=== PATIENT | female | born 1990 | race African-American/Black ===

== ENCOUNTER 2018-02-04 14:07 | Inpatient (IN) | payer MEDICAID, SELFPAY ==
[~2018-02-04] VITALS: Ht 170.2 cm; Wt 82.4 kg
[~2018-02-04 14:07] MED LIST: PROZAC PO
[2018-02-04 14:24] LABS: GLUCOSE,POINT OF CARE 116 MG/DL (70-110)
[2018-02-04 15:53] LABS: BASOPHILS % (AUTO) 0.3 % (0.0-2.0); EOSINOPHILS % (AUTO) 0.2 % (1.0-6.0); HEMATOCRIT 43.5 % (36-46); HEMOGLOBIN 14.3 g/dL (12.0-16.0); LYMPHOCYTES # (AUTO) 0.6 K/uL (1.0-4.8); LYMPHOCYTES % (AUTO) 6.2 % (22.0-44.0); MEAN CORPUSCULAR HEMOGLOBIN 29.3 pg (26.0-34.0); MEAN CORPUSCULAR HGB CONC 32.9 G/dL (31.0-37.0); MEAN CORPUSCULAR VOLUME 89 fL (80-100); MONOCYTES # (AUTO) 1.1 K/uL (0.1-1.0); MONOCYTES % (AUTO) 11.5 % (2.0-9.0); NEUTROPHILS % (AUTO) 81.8 % (40.0-70.0); PLATELET COUNT (AUTO) 208 K/uL (150-450); RED CELL DISTRIBUTION WIDTH 16.3 % (11.5-14.5)
[2018-02-04 16:06] LABS: ANION GAP 11 mmol/L (8-16); CALCIUM, TOTAL 8.4 mg/dL (8.8-10.5); CARBON DIOXIDE 25 mmol/L (22-29); CHLORIDE 99 mmol/L (98-107); CREATININE 0.77 mg/dL (0.60-1.30); GLOMERULAR FILTR. RATE CALC > 60 mL/min (>60); GLUCOSE,RANDOM 105 mg/dL (70-110); POTASSIUM 3.5 mmol/L (3.5-5.1); SODIUM SERUM 135 mmol/L (136-145); UREA NITROGEN, BLOOD 11 mg/dL (7-18)
[2018-02-04 16:11] LABS: ALANINE AMINOTRANSFERASE 161 U/L (12-78); ALBUMIN 3.9 g/dL (3.4-5.0); ALKALINE PHOSPHATASE 101 U/L (46-116); ASPARTATE AMINOTRANSFERASE 122 U/L (15-37); BILIRUBIN,TOTAL 1.4 mg/dL (0.1-1.0); TOTAL PROTEIN, SERUM 7.6 g/dL (6.4-8.2)
[2018-02-04 16:14] LABS: ACETAMINOPHEN 165 mcg/mL (10-30)
[2018-02-04 16:15] LABS: SALICYLATE < 2.8 mg/dL (2.8-20.0)
[2018-02-04] MEDS ORDERED: ONDANSETRON HCL 4 MG/2 ML VIAL IVP ONE (16:30)
[2018-02-04] MEDS ORDERED: WATER IV ONE ×3 (16:30→21:30)
[2018-02-04] MEDS ORDERED: ACETYLCYSTEINE IV ONE ×3 (16:30→21:30)
[2018-02-04] MEDS ORDERED: DEXTROSE 5% IV ONE ×3 (16:30→21:30)
[2018-02-04 16:40] LABS: INR 1.1 (0.9-1.1); PROTHROMBIN TIME 11.9 SEC (9.4-11.6)
[2018-02-04] MEDS ORDERED: ONDANSETRON HCL 4 MG/2 ML VIAL IVP PRN (16:45)
[2018-02-04 17:46] VITALS: BP 128/78
[2018-02-04] MEDS ORDERED: BISACODYL 10 MG RECTAL RECTAL SUPPOSITORY PR PRN (19:45)
[2018-02-04] MEDS ORDERED: ALBUTEROL SULFATE 2.5 MG/0.5 ML NEB SOLUTION NEB PRN (19:45)
[2018-02-04] MEDS ORDERED: MAGNESIUM HYDROXIDE SUSPENSION 30 ML UDCUP PO PRN (19:45)
[2018-02-04] MEDS ORDERED: IPRATROPIUM BROMIDE 0.5 MG/2.5 ML NEB SOLUTION NEB PRN (19:45)
[2018-02-04 20:00] VITALS: BP 151/99
[2018-02-04] MEDS: ONDANSETRON HCL 4 MG/2 ML VIAL IVP PRN (20:25)
[2018-02-04] MEDS: DOCUSATE SODIUM 100 MG CAPSULE PO SCH (20:28)
[2018-02-04] MEDS: HEPARIN SODIUM,PORCINE 5,000 UNITS/ML VIAL SQ SCH (23:15)
[2018-02-05 00:15] VITALS: BP 130/72
[2018-02-05] MEDS: ONDANSETRON HCL 4 MG/2 ML VIAL IVP PRN ×2 (02:20→12:31)
[2018-02-05 05:45] VITALS: BP 143/85
[2018-02-05] MEDS: HEPARIN SODIUM,PORCINE 5,000 UNITS/ML VIAL SQ SCH (08:00)
[2018-02-05] MEDS: DOCUSATE SODIUM 100 MG CAPSULE PO SCH ×2 (09:00→21:00)
[2018-02-05] MEDS: PANTOPRAZOLE SODIUM 40 MG/VIAL IVP SCH (09:00)
[2018-02-05 12:15] VITALS: BP 128/67
[2018-02-05] MEDS: ESCITALOPRAM OXALATE 10 MG TABLET PO SCH (12:21)
[2018-02-05 13:34] LABS: BASOPHILS % (AUTO) 0.3 % (0.0-2.0); EOSINOPHILS % (AUTO) 0.9 % (1.0-6.0); HEMATOCRIT 42.8 % (36-46); HEMOGLOBIN 14.2 g/dL (12.0-16.0); LYMPHOCYTES # (AUTO) 1.1 K/uL (1.0-4.8); LYMPHOCYTES % (AUTO) 8.4 % (22.0-44.0); MEAN CORPUSCULAR HEMOGLOBIN 29.1 pg (26.0-34.0); MEAN CORPUSCULAR HGB CONC 33.2 G/dL (31.0-37.0); MEAN CORPUSCULAR VOLUME 88 fL (80-100); MONOCYTES # (AUTO) 0.5 K/uL (0.1-1.0); MONOCYTES % (AUTO) 3.5 % (2.0-9.0); NEUTROPHILS # (AUTO) 11.9 K/uL (1.8-7.7); NEUTROPHILS % (AUTO) 86.9 % (40.0-70.0); PLATELET COUNT (AUTO) 266 K/uL (150-450); RED BLOOD CELL COUNT(AUTO) 4.89 MIL/uL (4.00-5.20); RED CELL DISTRIBUTION WIDTH 16.1 % (11.5-14.5)
[2018-02-05 13:43] LABS: INR 1.9 (0.9-1.1); PROTHROMBIN TIME 19.1 SEC (9.4-11.6)
[2018-02-05 13:49] LABS: ACETAMINOPHEN 5 mcg/mL (10-30); ALANINE AMINOTRANSFERASE 983 U/L (12-78); ALBUMIN 3.3 g/dL (3.4-5.0); ALKALINE PHOSPHATASE 100 U/L (46-116); ANION GAP 7 mmol/L (8-16); ASPARTATE AMINOTRANSFERASE 852 U/L (15-37); CALCIUM, TOTAL 8.1 mg/dL (8.8-10.5); CARBON DIOXIDE 29 mmol/L (22-29); CHLORIDE 96 mmol/L (98-107); CREATININE 0.74 mg/dL (0.60-1.30); GLOMERULAR FILTR. RATE CALC > 60 mL/min (>60); GLUCOSE,RANDOM 99 mg/dL (70-110); SODIUM SERUM 132 mmol/L (136-145); TOTAL PROTEIN, SERUM 6.6 g/dL (6.4-8.2); UREA NITROGEN, BLOOD 12 mg/dL (7-18)
[2018-02-05] MEDS ORDERED: POTASSIUM CHLORIDE 20 MEQ ER TABLET PO ONE (14:15)
[2018-02-05 16:26] VITALS: BP 124/70
[2018-02-05] MEDS ORDERED: WATER IV ONE (17:00)
[2018-02-05] MEDS ORDERED: ACETYLCYSTEINE IV ONE (17:00)
[2018-02-05] MEDS ORDERED: DEXTROSE 5% IV ONE (17:00)
[2018-02-06 04:15] VITALS: BP 130/68
[2018-02-06 06:27] LABS: BASOPHILS % (AUTO) 0.2 % (0.0-2.0); EOSINOPHILS % (AUTO) 0.2 % (1.0-6.0); HEMOGLOBIN 14.1 g/dL (12.0-16.0); LYMPHOCYTES # (AUTO) 0.6 K/uL (1.0-4.8); LYMPHOCYTES % (AUTO) 5.6 % (22.0-44.0); MEAN CORPUSCULAR HEMOGLOBIN 29.1 pg (26.0-34.0); MEAN CORPUSCULAR HGB CONC 33.6 G/dL (31.0-37.0); MEAN CORPUSCULAR VOLUME 87 fL (80-100); MONOCYTES # (AUTO) 0.6 K/uL (0.1-1.0); MONOCYTES % (AUTO) 5.1 % (2.0-9.0); NEUTROPHILS # (AUTO) 9.6 K/uL (1.8-7.7); PLATELET COUNT (AUTO) 228 K/uL (150-450); RED BLOOD CELL COUNT(AUTO) 4.84 MIL/uL (4.00-5.20); RED CELL DISTRIBUTION WIDTH 15.9 % (11.5-14.5)
[2018-02-06 06:29] LABS: NEUTROPHILS % (AUTO) 88.9 % (40.0-70.0)
[2018-02-06 06:38] LABS: INR 2.1 (0.9-1.1); PROTHROMBIN TIME 21.7 SEC (9.4-11.6)
[2018-02-06 07:03] LABS: ALBUMIN 3.2 g/dL (3.4-5.0); ALKALINE PHOSPHATASE 117 U/L (46-116); ANION GAP 10 mmol/L (8-16); BILIRUBIN,TOTAL 2.9 mg/dL (0.1-1.0); CARBON DIOXIDE 26 mmol/L (22-29); CHLORIDE 98 mmol/L (98-107); CREATININE 0.84 mg/dL (0.60-1.30); GLOMERULAR FILTR. RATE CALC > 60 mL/min (>60); GLUCOSE,RANDOM 87 mg/dL (70-110); POTASSIUM 3.2 mmol/L (3.5-5.1); SODIUM SERUM 134 mmol/L (136-145); TOTAL PROTEIN, SERUM 6.6 g/dL (6.4-8.2); UREA NITROGEN, BLOOD 10 mg/dL (7-18)
[2018-02-06 07:33] LABS: ALANINE AMINOTRANSFERASE 10874 U/L (12-78)
[2018-02-06 07:36] LABS: ASPARTATE AMINOTRANSFERASE 10957 U/L (15-37)
[2018-02-06] MEDS: DOCUSATE SODIUM 100 MG CAPSULE PO SCH ×2 (08:33→20:00)
[2018-02-06] MEDS: ESCITALOPRAM OXALATE 10 MG TABLET PO SCH (08:33)
[2018-02-06] MEDS: PANTOPRAZOLE SODIUM 40 MG/VIAL IVP SCH (08:33)
[2018-02-06 08:34] VITALS: BP 120/68
[2018-02-06 09:02] LABS: BILIRUBIN,DIRECT 1.2 mg/dL (0.00-0.20); BILIRUBIN,TOTAL 2.5 mg/dL (0.1-1.0)
[2018-02-06] MEDS ORDERED: POTASSIUM CHL 10 MEQ/WATER 50 ML IV PRN (09:30)
[2018-02-06] MEDS: POTASSIUM CHLORIDE 20 MEQ ER TABLET PO PRN ×2 (09:31→15:47)
[2018-02-06] MEDS ORDERED: DEXTROSE 5% IV ONE (14:15)
[2018-02-06] MEDS ORDERED: WATER IV ONE (14:15)
[2018-02-06] MEDS ORDERED: ACETYLCYSTEINE IV ONE (14:15)
[2018-02-06] MEDS: ONDANSETRON HCL 4 MG/2 ML VIAL IVP PRN (15:20)
[2018-02-06 15:42] VITALS: BP 116/65
[2018-02-06] MEDS ORDERED: PHYTONADIONE 10 MG/1 ML AMP SQ ONE ×2 (16:45→19:00)
[2018-02-06 18:22] LABS: HEMATOCRIT 41.9 % (36-46); HEMOGLOBIN 13.9 g/dL (12.0-16.0); MEAN CORPUSCULAR HEMOGLOBIN 29.3 pg (26.0-34.0); MEAN CORPUSCULAR HGB CONC 33.3 G/dL (31.0-37.0); MEAN CORPUSCULAR VOLUME 88 fL (80-100); PLATELET COUNT (AUTO) 218 K/uL (150-450); RED BLOOD CELL COUNT(AUTO) 4.75 MIL/uL (4.00-5.20); RED CELL DISTRIBUTION WIDTH 15.7 % (11.5-14.5)
[2018-02-06 18:30] LABS: ANION GAP 6 mmol/L (8-16); CARBON DIOXIDE 29 mmol/L (22-29); CHLORIDE 100 mmol/L (98-107); CREATININE 0.77 mg/dL (0.60-1.30); GLOMERULAR FILTR. RATE CALC > 60 mL/min (>60); GLUCOSE,RANDOM 110 mg/dL (70-110); POTASSIUM 3.8 mmol/L (3.5-5.1); SODIUM SERUM 135 mmol/L (136-145); UREA NITROGEN, BLOOD 6 mg/dL (7-18)
[2018-02-06 18:44] LABS: ALBUMIN 3.1 g/dL (3.4-5.0); ALKALINE PHOSPHATASE 121 U/L (46-116); BILIRUBIN,TOTAL 2.2 mg/dL (0.1-1.0); TOTAL PROTEIN, SERUM 6.5 g/dL (6.4-8.2)
[2018-02-06 18:55] LABS: ASPARTATE AMINOTRANSFERASE 7982 U/L (15-37)
[2018-02-06 19:05] LABS: ALANINE AMINOTRANSFERASE 13245 U/L (12-78)
[2018-02-06 19:19] LABS: BAND NEUTROPHILS % (MANUAL) 2 % (0-5); EOSINOPHILS % (MANUAL) 2 % (1-6); LYMPHOCYTES % (MANUAL) 16 % (22-44); MONOCYTES % (MANUAL) 1 % (2-9); SEGMENTED NEUTROPHILS % 79 % (40-70)
[2018-02-06 20:02] VITALS: BP 125/66
[2018-02-06 20:58] LABS: ABG A-A DIFF O2 12.5 mmHg (10-20.0); ABG BASE EXCESS 3.1 mmol/L (-2.0-3.0); ABG CARBOXYHEMOGLOBIN 0.6 % (0.0-3.0); ABG HCO3 27.4 mmol/L (22.0-26.0); ABG METHEMOGLOBIN 0.2 % (0.0-1.5); ABG OXYGEN CONTENT 18.7 mL/dL (15.0-23.0); ABG OXYGEN SATURATION 97.4 % (95.0-98.0); ABG OXYHEMOGLOBIN 96.6 % (94.0-100.0); ABG PCO2 36 mmHg (35-45); ABG PH 7.485 (7.350-7.450); ABG TOTAL HEMOGLOBIN 13.7 G/dL (12.0-18.0); PO2, ARTERIAL BG 94.1 mmHg (80.0-100.0); SOURCE, BLOOD GAS ARTERIAL; TEMPERATURE, FAHRENHEIT, BG 98.6 FAHREN (96.0-98.6)
[2018-02-06 20:59] LABS: O2 DEVICE,BLOOD GAS ROOM AIR (ROOM AIR); SITE, BLOOD GAS RT RADIAL
[2018-02-07 05:09] VITALS: BP 123/67
[2018-02-07 07:51] VITALS: BP 119/67
[2018-02-07] MEDS: PANTOPRAZOLE SODIUM 40 MG/VIAL IVP SCH (08:42)
[2018-02-07] MEDS: DOCUSATE SODIUM 100 MG CAPSULE PO SCH ×2 (08:42→19:59)
[2018-02-07] MEDS: ESCITALOPRAM OXALATE 10 MG TABLET PO SCH (08:42)
[2018-02-07] MEDS: PHYTONADIONE 10 MG/1 ML AMP SQ SCH (08:43)
[2018-02-07 09:01] LABS: INR 1.5 (0.9-1.1); PROTHROMBIN TIME 15.3 SEC (9.4-11.6)
[2018-02-07 11:50] LABS: ALKALINE PHOSPHATASE 109 U/L (46-116); ANION GAP 7 mmol/L (8-16); BILIRUBIN,TOTAL 1.7 mg/dL (0.1-1.0); CALCIUM, TOTAL 8.1 mg/dL (8.8-10.5); CARBON DIOXIDE 29 mmol/L (22-29); CHLORIDE 102 mmol/L (98-107); CREATININE 0.77 mg/dL (0.60-1.30); GLOMERULAR FILTR. RATE CALC > 60 mL/min (>60); GLUCOSE,RANDOM 97 mg/dL (70-110); POTASSIUM 3.5 mmol/L (3.5-5.1); SODIUM SERUM 138 mmol/L (136-145); TOTAL PROTEIN, SERUM 6.2 g/dL (6.4-8.2); UREA NITROGEN, BLOOD 6 mg/dL (7-18)
[2018-02-07 12:08] LABS: ASPARTATE AMINOTRANSFERASE 4764 U/L (15-37)
[2018-02-07 12:20] LABS: ALANINE AMINOTRANSFERASE 13358 U/L (12-78)
[2018-02-07] MEDS ORDERED: ACETYLCYSTEINE IV ONE ×2 (15:45→20:30)
[2018-02-07] MEDS ORDERED: WATER IV ONE ×2 (15:45→20:30)
[2018-02-07] MEDS ORDERED: DEXTROSE 5% IV ONE ×2 (15:45→20:30)
[2018-02-07 15:49] VITALS: BP 115/74
[2018-02-07 19:39] VITALS: BP 101/56
[2018-02-07 23:29] VITALS: BP 119/65
[2018-02-08 04:37] VITALS: BP 118/68
[2018-02-08 07:16] LABS: INR 1.1 (0.9-1.1); PROTHROMBIN TIME 11.5 SEC (9.4-11.6)
[2018-02-08 07:28] VITALS: BP 125/63
[2018-02-08 07:31] LABS: ALBUMIN 2.9 g/dL (3.4-5.0); ALKALINE PHOSPHATASE 105 U/L (46-116); ANION GAP 7 mmol/L (8-16); ASPARTATE AMINOTRANSFERASE 876 U/L (15-37); BILIRUBIN,TOTAL 1.4 mg/dL (0.1-1.0); CARBON DIOXIDE 28 mmol/L (22-29); CHLORIDE 101 mmol/L (98-107); CREATININE 0.82 mg/dL (0.60-1.30); GLOMERULAR FILTR. RATE CALC > 60 mL/min (>60); GLUCOSE,RANDOM 110 mg/dL (70-110); POTASSIUM 3.4 mmol/L (3.5-5.1); SODIUM SERUM 136 mmol/L (136-145); TOTAL PROTEIN, SERUM 6.4 g/dL (6.4-8.2); UREA NITROGEN, BLOOD 4 mg/dL (7-18)
[2018-02-08 08:05] LABS: ALANINE AMINOTRANSFERASE 6327 U/L (12-78)
[2018-02-08] MEDS: DOCUSATE SODIUM 100 MG CAPSULE PO SCH ×2 (08:45→20:48)
[2018-02-08] MEDS: PHYTONADIONE 10 MG/1 ML AMP SQ SCH (08:45)
[2018-02-08] MEDS: PANTOPRAZOLE SODIUM 40 MG/VIAL IVP SCH (08:45)
[2018-02-08] MEDS: POTASSIUM CHLORIDE 20 MEQ ER TABLET PO PRN (08:57)
[2018-02-08 11:35] VITALS: BP 127/63
[2018-02-08 15:41] VITALS: BP 144/67
[2018-02-08 19:48] VITALS: BP 109/63
[2018-02-08 23:38] VITALS: BP 114/67
[2018-02-09 04:37] VITALS: BP 136/62
[2018-02-09 06:58] LABS: ALANINE AMINOTRANSFERASE 3815 U/L (12-78); ALBUMIN 3.1 g/dL (3.4-5.0); ALKALINE PHOSPHATASE 100 U/L (46-116); ANION GAP 6 mmol/L (8-16); ASPARTATE AMINOTRANSFERASE 327 U/L (15-37); BILIRUBIN,TOTAL 1.2 mg/dL (0.1-1.0); CALCIUM, TOTAL 8.3 mg/dL (8.8-10.5); CARBON DIOXIDE 28 mmol/L (22-29); CHLORIDE 102 mmol/L (98-107); CREATININE 0.75 mg/dL (0.60-1.30); GLOMERULAR FILTR. RATE CALC > 60 mL/min (>60); GLUCOSE,RANDOM 87 mg/dL (70-110); SODIUM SERUM 136 mmol/L (136-145); TOTAL PROTEIN, SERUM 6.7 g/dL (6.4-8.2); UREA NITROGEN, BLOOD 8 mg/dL (7-18)
[2018-02-09 08:02] VITALS: BP 109/58
[2018-02-09] MEDS: DOCUSATE SODIUM 100 MG CAPSULE PO SCH (08:38)
[2018-02-09 11:39] VITALS: BP 119/70
== END 2018-02-09 13:50 | disposition home or self-care (01) | DRG 817 ==
LOC: EMS 14:07 → 6N 16:33
PROVIDERS: ADMIT Hospitalist; ATTEND Hospitalist
DX: T39.1X2A Poisoning by 4-Aminophenol derivatives, intentional self-harm, initial encounter (principal); K72.00 Acute and subacute hepatic failure without coma; D68.9 Coagulation defect, unspecified; R45.851 Suicidal ideations; F33.2 Major depressive disorder, recurrent severe without psychotic features; R74.0 Nonspecific elevation of levels of transaminase and lactic acid dehydrogenase [LDH]; E87.6 Hypokalemia; Y92.89 Other specified places as the place of occurrence of the external cause; Z91.5 Personal history of self-harm
CPT/HCPCS: 76700; 82247; 82248; 82805; 84132; 84450; 84460; 85007; 93005; 96365; 96375; C9113; G0378; G0480; G0481; J0132; J1644; J2405; J3430; J7060

== ENCOUNTER 2020-12-23 22:52 | Emergency (ER) | payer MEDICAID ==
[~2020-12-23] VITALS: Ht 167.6 cm; Wt 75.0 kg
[2020-12-23 23:07] VITALS: BP 148/95
[2020-12-24 00:52] LABS: COVID AG,FIA SOURCE NASOPHARYNGEAL
[2020-12-24 00:53] LABS: BASOPHILS % (AUTO) 0.8 % (0.0-2.0); EOSINOPHILS % (AUTO) 2.2 % (1.0-6.0); HEMATOCRIT 40.8 % (36-46); HEMOGLOBIN 13.6 g/dL (12.0-16.0); LYMPHOCYTES # (AUTO) 1.9 K/uL (1.0-4.8); LYMPHOCYTES % (AUTO) 20.1 % (22.0-44.0); MEAN CORPUSCULAR HEMOGLOBIN 31.9 pg (26.0-34.0); MEAN CORPUSCULAR HGB CONC 33.3 G/dL (31.0-37.0); MEAN CORPUSCULAR VOLUME 96 fL (80-100); MONOCYTES # (AUTO) 0.7 K/uL (0.1-1.0); MONOCYTES % (AUTO) 7.2 % (2.0-9.0); NEUTROPHILS # (AUTO) 6.6 K/uL (1.8-7.7); NEUTROPHILS % (AUTO) 69.7 % (40.0-70.0); PLATELET COUNT (AUTO) 268 K/uL (150-450); RED BLOOD CELL COUNT(AUTO) 4.27 MIL/uL (4.00-5.20); RED CELL DISTRIBUTION WIDTH 13.2 % (11.5-14.5)
[2020-12-24 01:11] LABS: ANION GAP 8 mmol/L (8-16); CALCIUM, TOTAL 8.7 mg/dL (8.8-10.5); CARBON DIOXIDE 26 mmol/L (22-29); CHLORIDE 105 mmol/L (98-107); CREATININE 0.71 mg/dL (0.60-1.30); GLOMERULAR FILTR. RATE CALC > 60 mL/min (>60); GLUCOSE,RANDOM 106 mg/dL (70-110); POTASSIUM 3.8 mmol/L (3.5-5.1); SODIUM SERUM 139 mmol/L (136-145); UREA NITROGEN, BLOOD 12 mg/dL (7-18)
[2020-12-24 01:18] LABS: ALANINE AMINOTRANSFERASE 64 U/L (12-78); ALBUMIN 3.6 g/dL (3.4-5.0); ALKALINE PHOSPHATASE 102 U/L (46-116); ASPARTATE AMINOTRANSFERASE 23 U/L (15-37); BILIRUBIN,TOTAL 0.2 mg/dL (0.1-1.0); TOTAL PROTEIN, SERUM 7.7 g/dL (6.4-8.2)
[2020-12-24 01:21] LABS: AMPHET/METH SCREEN,URINE POSITIVE (NEGATIVE); BARBITURATE SCREEN, URINE NEGATIVE (NEGATIVE); BENZODIAZEPINES SCREEN,URINE NEGATIVE (NEGATIVE); CANNABINOID SCREEN,URINE NEGATIVE (NEGATIVE); COCAINE SCREEN,URINE NEGATIVE (NEGATIVE); METHADONE SCREEN, URINE NEGATIVE (NEGATIVE); OPIATE SCREEN,URINE NEGATIVE (NEGATIVE)
[2020-12-24 01:23] LABS: PHENCYCLIDINE SCREEN,URINE NEGATIVE (NEGATIVE)
== END 2020-12-24 02:00 | disposition home or self-care (01) ==
LOC: EMS 22:55
DX: F22 Delusional disorders (principal); Z20.822 Contact with and (suspected) exposure to COVID-19; F32.9 Major depressive disorder, single episode, unspecified; F41.9 Anxiety disorder, unspecified
CPT/HCPCS: 36415; 80053; 80307; 85025; 87426; 99284; G0480

== ENCOUNTER 2020-12-27 16:56 | Emergency (ER) | payer MEDICAID ==
[~2020-12-27] VITALS: Ht 167.6 cm; Wt 81.8 kg
[2020-12-27 17:04] VITALS: BP 142/82
== END 2020-12-27 18:15 | disposition home or self-care (01) ==
LOC: EMS 17:04
DX: F32.9 Major depressive disorder, single episode, unspecified (principal); F43.10 Post-traumatic stress disorder, unspecified
CPT/HCPCS: 99283

== ENCOUNTER 2021-04-09 13:30 | Emergency (ER) | payer MEDICAID, OTHER ==
[~2021-04-09] VITALS: Ht 167.6 cm; Wt 80.5 kg
[2021-04-09 14:14] VITALS: BP 151/76
[2021-04-09] MEDS ORDERED: AMPH30TA3 PO (14:17)
[2021-04-09] MEDS ORDERED: TRAZ-257 PO (14:17)
[2021-04-09 14:30] LABS: COVID AG,FIA SOURCE NASOPHARYNGEAL
== END 2021-04-09 16:01 | disposition home or self-care (01) ==
LOC: EMS 13:30
DX: R68.83 Chills (without fever) (principal); F32.9 Major depressive disorder, single episode, unspecified; Z20.822 Contact with and (suspected) exposure to COVID-19
CPT/HCPCS: 99283

== ENCOUNTER 2022-10-07 01:40 | Emergency (ER) | payer SELFPAY ==
[~2022-10-07] VITALS: Ht 167.6 cm; Wt 77.3 kg
[~2022-10-07 01:40] MED LIST changes: +AMPH30TA3 PO; -PROZAC PO; +TRAZ-257 PO
[2022-10-07] MEDS ORDERED: ACETAMINOPHEN 500 MG TABLET PO ONE (02:00)
[2022-10-07 02:20] VITALS: BP 147/117; PULSE 100; RESP 18; TEMP 98.7
== END 2022-10-07 03:31 | disposition left against medical advice (07) ==
LOC: EMS 01:41
DX: S80.02XA Contusion of left knee, initial encounter (principal); F32.A Depression, unspecified; X58.XXXA Exposure to other specified factors, initial encounter; Y93.89 Activity, other specified; Y92.89 Other specified places as the place of occurrence of the external cause; Y99.8 Other external cause status
CPT/HCPCS: 70450; 99284